=== PATIENT | male | born 1995 | race Caucasian/White ===

== ENCOUNTER 2017-08-31 20:35 | Observation (INO) | payer BC ==
[2017-08-31] MEDS ORDERED: Morphine INJ* 10 MG/ML 1 ML CARPUJECT IV ONE (21:15)
[2017-08-31] MEDS ORDERED: NS 0.9% 1000 ML* 1,000 ML IV ONE (21:15)
[2017-08-31] MEDS ORDERED: Famotidine IV* 10 MG/ML 2 ML (20 mg) IV ONE (21:15)
[2017-08-31 22:14] LABS: ABS Basophils 0 10^3/ul (0-0.2); ABS Eosinophils 0 10^3/ul (0-0.6); ABS Lymphocytes 1.5 10^3/ul (1.0-4.8); ABS Neutrophils 12.9 10^3/ul (1.5-7.7); ABS Nucleated RBC 0 10^3/ul; Eosinophil % 0.3 % (0-6); Hematocrit 46 % (42-52); Hemoglobin 16.3 g/dl (14.0-18.0); Lymphocyte % 9.5 % (25-47); Mean Corpuscular HGB Conc 36 g/dl (31-36); Mean Corpuscular Hemoglobin 31 pg (27-31); Mean Corpuscular Volume 86 fL (80-94); Mean Platelet Volume 11 um3 (7.4-10.4); Nucleated Red Blood Cells % 0.1; Platelet Count 191 10^3/ul (150-450); Red Blood Count 5.31 10^6/ul (4.0-5.4); Red Cell Distribution Width 13 % (10.5-15); White Blood Count 15.4 10^3/ul (3.5-10.8)
[2017-08-31 22:26] LABS: EGFR Non-African American 101.3 (>60)
[2017-08-31] MEDS ORDERED: Ketorolac INJ* 30 MG/ML 1 ML VIAL IV PUSH ONE (22:28)
[2017-08-31] MEDS ORDERED: Iohexol 300* (CONTRAST) 10 ML SDV IV ONE (22:35)
[2017-08-31] MEDS ORDERED: Ondansetron INJ* 2 MG/ML VIAL IV PRN (23:58)
[2017-08-31] MEDS ORDERED: HYDROmorphone INJ* 2 MG/ML CARPUJECT SYRINGE IV PRN (23:58)
[2017-09-01] MEDS ORDERED: CEFOXITIN 2 GM IVPB SCH ×2 (02:00)
[2017-09-01] MEDS ORDERED: NS 0.9% 100 ML* 100 ML with ceFOXitin(*) 2 GM IVPB SCH ×2 (02:00)
[2017-09-01 03:16] LABS: Urine Appearance Clear; Urine Blood Negative (Negative); Urine Color Yellow; Urine Ketones 1+ (Negative); Urine Protein Negative (Negative); Urine Specific Gravity > 1.060 (1.010-1.030); Urine Urobilinogen Positive (Negative)
[2017-09-01] MEDS: HYDROmorphone INJ* 2 MG/ML CARPUJECT SYRINGE IV PRN ×5 (03:56→08:23)
--- NOTE | 2017-09-01 09:25 | RAD ---
CLINICAL HISTORY: Right abdominal pain COMPARISON: None TECHNIQUE: Contrast enhanced CT examination of the abdomen and pelvis from the lung bases through the initial tuberosities. The patient received 145 mL Omnipaque 300 intravenously prior to imaging. FINDINGS: VISUALIZED LUNG BASES: The visualized lung bases are grossly clear. There is no pleural effusion. ABDOMEN AND PELVIS: The liver is homogenously hypodense relative to the spleen. There are no suspicious lesions or masses. The spleen, pancreas and adrenal glands are grossly normal in appearance. The gallbladder is normal. The kidneys are normal in appearance without focal mass, calcification or signs of hydronephrosis. The small and large bowel are not distended. The appendix is best depicted in the coronal plane measuring 1.1 cm in maximum diameter (image 76) at its more proximal portion just before the junction with the base of the cecum there is hyperattenuating material compatible with an appendicolith. There is a mild degree of periappendiceal fat stranding. There is no gross retroperitoneal or mesenteric lymphadenopathy. The pelvic viscera is normal in appearance. The abdominal aorta and iliac arteries are normal in course and diameter. There are no sinister bone lesions. IMPRESSION: 1. CT findings could be compatible with early/mild appendicitis in the correct clinical presentation. 2. Likely hepatic steatosis.
[2017-09-01] MEDS ORDERED: Famotidine IV* 10 MG/ML 2 ML (20 mg) IV SLOW PU ONE (09:32)
[2017-09-01] MEDS ORDERED: Famotidine IV* 10 MG/ML 2 ML (20 mg) ONE (09:37)
[2017-09-01] MEDS ORDERED: Bupivacaine 0.25% SDV* 30 ML ONE (09:56)
[2017-09-01] MEDS ORDERED: Lidocaine 2% PF * 5 ML VIAL ONE (09:58)
[2017-09-01] MEDS ORDERED: Propofol* 10 MG/ML 20 ML BTL IV PUSH ONE ×2 (09:58→10:22)
[2017-09-01] MEDS ORDERED: Dexamethasone IV* 4 MG/ML 1 ML (4 MG) ONE (09:58)
[2017-09-01] MEDS ORDERED: Cisatracurium* 2 MG/ML MDV 5 ML ONE (09:58)
[2017-09-01] MEDS ORDERED: Midazolam* 1 MG/ML 5 ML VIAL (5 MG) ONE (09:58)
[2017-09-01] MEDS ORDERED: Ondansetron INJ* 2 MG/ML VIAL ONE (09:58)
[2017-09-01] MEDS ORDERED: fentaNYL* 50 MCG/ML 2 ML VIAL (100 MCG VIAL) ONE (09:58)
[2017-09-01] MEDS ORDERED: oxyCODONE/Acetamin 5/325 MG* TAB PO PRN ×2 (10:09→11:13)
[2017-09-01] MEDS ORDERED: Neostigmine Methylsulfate* 1 MG/ML 10 ML VIAL (1 mg/ml) ONE (10:49)
[2017-09-01] MEDS ORDERED: Glycopyrrolate IV* 0.2 MG/ML 1 ML VIAL ONE (10:49)
[2017-09-01] MEDS ORDERED: fentaNYL* 50 MCG/ML 2 ML VIAL (100 MCG VIAL) IV PRN (11:13)
[2017-09-01] MEDS ORDERED: Ondansetron INJ* 2 MG/ML VIAL IV PRN (11:13)
[2017-09-01] MEDS ORDERED: Naloxone* 0.4 MG/ML 1 ML VIAL IV PRN (11:13)
[2017-09-01 11:46] VITALS: BP 122/64
[2017-09-01] MEDS ORDERED: EPHEDrine (Pressors)* 50 MG/ML VIAL ONE (12:39)
--- NOTE | 2017-09-01 20:50 | HP ---
HISTORY AND PHYSICAL: DATE OF ADMISSION: 09/01/17 CHIEF COMPLAINT: Abdominal pain. HISTORY OF PRESENT ILLNESS: The patient is a 21-year-old male, who yesterday started to have some queasiness, nausea, and central abdominal pain. It got very bad in the evening and he presented to the emergency room. He had no antecedent illness. No accident, injury, or trauma. No chronic medical problems with regard to intestine or digestive function. PAST MEDICAL HISTORY: Reveals only gastroesophageal reflux disease. He takes over- the-counter omeprazole for that. PAST SURGICAL HISTORY: He has no previous surgeries. ALLERGIES: He denies medical allergies. FAMILY HISTORY: Relatively benign, although multiple relatives have had their appendix out. There is no bleeding tendencies or anesthesia reactions. SOCIAL HISTORY: He has a girlfriend. He works running a coffee shop. He is a nonsmoker, rare drinker. He does not admit to any drugs or illicit substances. REVIEW OF SYSTEMS: Multisystem review is benign. No chest pain, heart pain, angina, or cardiac disease. No lung disease, bronchitis, or emphysema. No chronic abdominal history. No colitis, irritable bowel, spastic colon, or the like. No hepatobiliary disease. No diabetes, thyroid, or other endocrine. No history. No kidney stones, bladder infections, or like. No bleeding tendencies or anesthesia reactions. No neurologic issues. Orthopedically, he did have a broken leg when he was 3 and that resolved nicely. PHYSICAL EXAMINATION GENERAL: He is a well-developed, well-nourished overweight male, consistent with stated age. VITAL SIGNS: Show blood pressure 122/80, pulse 100, respirations 16, temperature 101.2, O2 saturation 99%. NECK: Supple without any adenopathy. LUNGS: Clear bilaterally. HEART: Regular without any abnormal sounds. Sounds little tachycardic. ABDOMEN: Obese and soft and quite tender in the right lower quadrant with focal rebound tenderness. There is mild cough tenderness, mild Rovsing sign. No palpable masses or hernias. Bowel sounds are diminished. EXTREMITIES: Well perfused and without edema. SKIN: Warm, well perfused. He is not diaphoretic. He is not jaundiced. DIAGNOSTIC STUDIES/LAB DATA: Show white blood count elevated at 15,000 with left shift. The electrolytes are normal. Urinalysis is concentrated, but otherwise basically normal. CT scan is consistent with early acute appendicitis. IMPRESSION AND PLAN: A 21-year-old male with evidence of early acute appendicitis. I discussed this with him and with his family, and I recommend laparoscopic appendectomy. They understand the procedure, the rationale, the risks, and the expected recovery, and agreed to proceed in the fashion outlined and we will do so this morning. [id number]/[facility] #: [id number] MTDD
--- NOTE | 2017-09-02 07:31 | OP ---
DATE OF OPERATION: 09/01/17 - ROOM #333 DATE OF : 89 SURGEON: Gilmar Martin MD [employer] SPECIALIST: None. ANESTHESIOLOGIST: José Redd MD ANESTHESIA: General anesthetic, local infiltration by the surgeon. PRE-OP DIAGNOSIS: Appendicitis. POST-OP DIAGNOSIS: Appendicitis. OPERATIVE PROCEDURE: Laparoscopic appendectomy. DESCRIPTION OF PROCEDURE: The patient was supine on the operative table. After adequate general anesthetic, compression stockings, Rachelle Hugger warmer, and intravenous antibiotics, the abdomen was clipped and prepped with antiseptic , draped in a sterile fashion. Local infiltrative anesthesia was administered. A small umbilical incision was created. Blunt port cannula was placed. Insufflation was carried out with carbon dioxide. Additional cannulae, 5-mm left lower quadrant, left mid abdomen, placed through small stab wounds under direct vision. The appendix was acutely suppurative, but it was all contained within the appendix. There was no surrounding infection. The base of the appendix was not inflamed. The base of the appendix and the mesoappendix were divided using a single firing of an EndoGIA stapler, 60-mm gibson cartridge, and the appendix was placed in a retrieval bag and brought out through the umbilical site. The staple line at the cecum was examined and was showing excellent closure and excellent hemostasis. The pneumo-peritoneum was allowed to escape. The umbilical fascia was closed with 0 Vicryl, skin with 5-0 Vicryl , followed by Steri-Strips. Appendix was sent in formalin for pathologic evaluation. There were no complications. No drains. Pathologic specimen was appendix. Sponge and instrument counts correct. Estimated blood loss was 10 mL. [id number]/[facility] #: [id number] [facility]
--- NOTE | 2017-09-02 09:46 | DS ---
DISCHARGE SUMMARY: DATE OF ADMISSION: 09/01/17 DATE OF DISCHARGE: 09/01/17 PRINCIPAL ADMITTING DIAGNOSIS: Appendicitis. OPERATION ON THIS ADMISSION: Laparoscopic appendectomy. HOSPITAL COURSE: The patient is a 21-year-old male who came to the hospital and was admitted in the wee hours of 09/01/17. He was taken to the operating room later that morning for laparoscopic appendectomy. This was an uncomplicated procedure and he made uncomplicated recovery and was discharged home that same afternoon. He is discharged home with instructions. He will follow up in the office in about a week. [id number]/[facility] #: [id number] YASH
== END 2017-09-01 12:05 | disposition home or self-care (01) ==
LOC: ED 20:35 → SSU 23:58
PROVIDERS: ADMIT Surgery; ATTEND Surgery
PROC: 0DTJ4ZZ Resection of Appendix, Percutaneous Endoscopic Approach (ICD-10-PCS; principal; 2017-09-01 10:07)
DX: K35.80 Unspecified acute appendicitis (principal)
CPT/HCPCS: 36415; 74177; 80053; 81003; 83690; 85025; 96374; 96375; 96376; 99285; G0378; J0694; J1100; J1170; J1885; J2250; J2270; J2405; J2704; J2710; J3010; Q9967